=== PATIENT | female | born 1930 | race Caucasian/White ===

== ENCOUNTER → 2016-09-20 | Emergency (ER) | payer OTHER ==
[~2016-09-20] MED LIST: DIPHTH,PERTUSS(ACELL),TET VAC 0.5 ML VIAL IM ONE
--- NOTE | 2016-09-20 22:48 | PDOC ---
History of Present Illness <eLslie Higuera - Last Filed: 09/21/16 00:03> - General History Source: EMS, Old Records Exam Limitations: Dementia - History of Present Illness Initial Comments: 09/20/16 23:08 The patient is an 86 year old female, with a significant past medical history of hypertension, hyperlipidemia and dementia, who presents to the emergency department via EMS with a laceration to the left forehead s/p a presumed fall prior to presentation. Unknown LOC. Last Tetanus date unknown. HPI is limited secondary to the patients baseline dementia. Allergies: NKDA. Gluten, Wheat, Barley, [place] <Terra Petty - Last Filed: 09/21/16 00:38> - General Chief Complaint: Injury Stated Complaint: FALL/HEAD INJURY Time Seen by Provider: 09/20/16 22:46 Past History - Past Medical History Dementia: Yes GI Disorders: Yes (CELIAC) HTN: Yes Hypercholesterolemia: Yes Psychiatric Problems: Yes (depression) Suicide Attempt (Hx): No - Surgical History Abdominal Surgery: Yes - Immunization History Immunization Up to Date: Yes - Psycho/Social/Smoking Cessation Hx Anxiety: Yes Suicidal Ideation: No Smoking Status: No Smoking History: Never smoked Have you smoked in the past 12 months: No Number of Cigarettes Smoked Daily: 0 Hx Alcohol Use: No Drug/Substance Use Hx: No Substance Use Type: None Hx Substance Use Treatment: No <Leslie Higuera - Last Filed: 09/21/16 00:03> <Terra Petty - Last Filed: 09/21/16 00:38> - Past Medical History Allergies/Adverse Reactions: Allergies Allergy/AdvReac Type Severity Reaction Status Date / Time gluten Allergy Verified 09/20/16 22:59 wheat Allergy Verified 09/20/16 22:59 No Known Drug Allergies AdvReac Verified 09/20/16 22:59 BARLEY Allergy Uncoded 09/20/16 22:59 RYE Allergy Uncoded 09/20/16 22:59 Home Medications: Ambulatory Orders Acetaminophen [Tylenol .Regular Strength -] 650 mg PO DAILY 12/23/14 Calcium Carbonate/Vitamin D3 [Os-Brennan 500+D Tablet] 1 each PO BID 12/23/14 Citalopram Hydrobromide [Citalopram HBr] 20 mg PO DAILY 12/23/14 Cyanocobalamin Vit B-12 Inj. [Vitamin B12 Injection -] 1,000 mcg IJ MONTHLY Dextran 70/Hypromellose [Tears Naturale-II Eye Drops] 15 ml OP QID 12/23/14 Meclizine HCl [Antivert -] 12.5 mg PO BID 12/23/14 Polyethylene Glycol 3350 [Purelax] 17 gm PO DAILY 12/23/14 Quetiapine Fumarate [Seroquel -] 25 mg PO DAILY 12/23/14 Quetiapine Fumarate [Seroquel -] 75 mg PO HS 12/23/14 Simvastatin [Zocor -] 20 mg PO HS 12/23/14 Review of Systems - Review of Systems Able to Perform ROS?: No Comments:: 09/20/16 22:59 Unable to perform ROS due to the patients baseline dementia. <Terra Petty - Last Filed: 09/21/16 00:38> *Physical Exam - Physical Exam Comments: 09/20/16 23:28 GENERAL: Awake, alert, in no acute distress. HEAD: See procedure note for details. EYES: PERRLA, EOMI, sclera anicteric, conjunctiva clear. ENT: Auricles normal inspection, hearing grossly normal, nares patent, oropharynx clear without exudates. Moist mucosa. NECK: Normal ROM, supple, no lymphadenopathy, JVD, or masses. LUNGS: Breath sounds equal, clear to auscultation bilaterally. No wheezes, and no crackles. HEART: Regular rate and rhythm, normal S1 and S2, no murmurs, rubs or gallops. ABDOMEN: Soft, nontender, normoactive bowel sounds. No guarding, no rebound. No masses. EXTREMITIES: Normal range of motion, no edema. No clubbing or cyanosis. No cords , erythema, or tenderness. NEUROLOGICAL: Cranial nerves II through XII intact. Normal speech, gait deferred. SKIN: Abrasion to the right hand. Warm, dry, normal turgor, no rashes noted. <Terra Petty - Last Filed: 09/21/16 00:38> Procedures - Laceration/Wound Repair Left Frontal Wound Length: 2.6 to 5.0 cm Wound Explored: clean, no foreign body present Wound's Depth, Shape: stellate, contused tissue Anesthesia: 1% Lidocaine Amount of Anesthetic (ccs): 2 Wound Repaired With: Sutures Suture Size/Type: 5:0, other (gut) Number of Sutures: 6 Layer Closure: No Sterile Dressing Applied: Yes Progress: 09/20/16 23:25 +Hemostasis. Patient tolerated well. Wound with 3 portions- one is 2cm, one is 1cm, and one is 0.5 cm. Six sutures were placed with good hemostasis and wound approximation. <Leslie Higuera - Last Filed: 09/21/16 00:03> Medical Decision Making - Medical Decision Making 09/21/16 00:38 EXAM: CT/HEAD CT WITHOUT CONTRAST Reviewed By: Dr. Germain Salcedo IMPRESSION: No CT evidence of acute intracranial pathology. <Terra Petty - Last Filed: 09/21/16 00:38> *DC/Admit/Observation/Transfer - Discharge Dispostion Admit: No <Leslie Higuera - Last Filed: 09/21/16 00:03> - Attestations Scribe Attestion: 09/20/16 22:54 Documentation prepared by Terra Petty, acting as medical billing representative for Leslie Hiugera MD. <Terra Petty - Last Filed: 09/21/16 00:38> Diagnosis at time of Disposition: Fall at [facility] Qualifiers: Encounter type: initial encounter Qualified Code(s): W19.XXXA - Unspecified fall, initial encounter Head injury Qualifiers: Encounter type: initial encounter Qualified Code(s): S09.90XA - Unspecified injury of head, initial encounter Laceration of forehead Qualifiers: Encounter type: initial encounter Qualified Code(s): S01.81XA - Laceration without foreign body of other part of head, initial encounter - Discharge Dispostion Disposition: HOME Condition at time of disposition: Stable - Patient Instructions Printed Discharge Instructions: DI for Laceration Repair -- Simple, DI for Closed Head Injury, How to Care for Absorbable Sutures
[2016-09-20 22:59] VITALS: TEMP 98.4; BMI 18.6
[2016-09-21 00:41] VITALS: BP 100/45; PULSE 60
== END | disposition home or self-care (01) ==
LOC: JER 22:35
PROC: 0HQ0XZZ Repair Scalp Skin, External Approach (ICD-10-PCS; principal; 2016-09-20)
PROC: 0HQ1XZZ Repair Face Skin, External Approach (ICD-10-PCS; 2016-09-20)
PROC: 3E0234Z Introduction of Serum, Toxoid and Vaccine into Muscle, Percutaneous Approach (ICD-10-PCS; 2016-09-20)
DX: S01.81XA Laceration without foreign body of other part of head, initial encounter (principal); W18.30XA Fall on same level, unspecified, initial encounter; Y93.9 Activity, unspecified; Y92.9 Unspecified place or not applicable; F03.90 Unspecified dementia, unspecified severity, without behavioral disturbance, psychotic disturbance, mood disturbance, and anxiety; I10 Essential (primary) hypertension; E78.00 Pure hypercholesterolemia, unspecified; F32.9 Major depressive disorder, single episode, unspecified; K90.0 Celiac disease
CPT/HCPCS: 12013-25; 70450-TC; 90471; 90715; 99281-25

== ENCOUNTER 2017-05-26 14:37 | Emergency (ER) | payer OTHER ==
[2017-05-26 15:03] VITALS: TEMP 97.6; BMI 21.2
--- NOTE | 2017-05-26 15:07 | PDOC ---
History of Present Illness - General Chief Complaint: Injury Stated Complaint: FALL Time Seen by Provider: 05/26/17 15:07 - History of Present Illness Initial Comments: 05/26/17 15:20 Ms. Hernández is an 87 yo female w/ pmh of HPT, HLD, and dementia who presents via EMS w/ laceration to left forehead s/p presumed fall. Unknown if there was LOC or any neurological sequelae. Similar to prior presentation for fall in September, HPI limited due to patient's baseline dementia. Past History - Past Medical History Allergies/Adverse Reactions: Allergies Allergy/AdvReac Type Severity Reaction Status Date / Time gluten Allergy Verified 05/26/17 15:03 wheat Allergy Verified 05/26/17 15:03 No Known Drug Allergies AdvReac Verified 05/26/17 15:03 BARLEY Allergy Uncoded 05/26/17 15:03 RYE Allergy Uncoded 05/26/17 15:03 Home Medications: Ambulatory Orders Acetaminophen [Tylenol .Regular Strength -] 650 mg PO DAILY 12/23/14 Calcium Carbonate/Vitamin D3 [Os-Brennan 500+D Tablet] 1 each PO BID 12/23/14 Citalopram Hydrobromide [Citalopram HBr] 20 mg PO DAILY 12/23/14 Cyanocobalamin Vit B-12 Inj. [Vitamin B12 Injection -] 1,000 mcg IJ MONTHLY Dextran 70/Hypromellose [Tears Naturale-II Eye Drops] 15 ml OP QID 12/23/14 Meclizine HCl [Antivert -] 12.5 mg PO BID 12/23/14 Polyethylene Glycol 3350 [Purelax] 17 gm PO DAILY 12/23/14 Quetiapine Fumarate [Seroquel -] 25 mg PO DAILY 12/23/14 Quetiapine Fumarate [Seroquel -] 75 mg PO HS 12/23/14 Simvastatin [Zocor -] 20 mg PO HS 12/23/14 COPD: No Dementia: Yes GI Disorders: Yes (CELIAC) HTN: Yes Hypercholesterolemia: Yes Psychiatric Problems: Yes (depression) - Surgical History Abdominal Surgery: Yes - Immunization History Immunization Up to Date: Yes - Suicide/Smoking/Psychosocial Hx Smoking Status: No Smoking History: Never smoked Have you smoked in the past 12 months: No Number of Cigarettes Smoked Daily: 0 Information on smoking cessation initiated: No Hx Alcohol Use: No Drug/Substance Use Hx: No Substance Use Type: None Hx Substance Use Treatment: No Review of Systems - Review of Systems Comments:: 05/26/17 15:24 Unable to obtain. *Physical Exam - Vital Signs Last Vital Signs Temp Pulse Resp BP Pulse Ox 97.6 F 84 18 116/76 100 05/26/17 14:37 05/26/17 14:37 05/26/17 14:37 05/26/17 14:37 05/26/17 14:37 - Physical Exam Comments: 05/26/17 15:24 GENERAL: Patient awake and verbal but answers inappropriately consistent with baseline dementia. In no acute distress HEAD: +Small 1cm laceration to left superior forehead just below hair line EYES: PERRLA, EOMI, sclera anicteric, conjunctiva clear ENT: Auricles normal inspection, hearing grossly normal, nares patent, oropharynx clear without exudates. Moist mucosa NECK: Normal ROM, supple, no lymphadenopathy, JVD, or masses LUNGS: No distress, speaks full sentences, clear to auscultation bilaterally HEART: Regular rate and rhythm, normal S1 and S2, no murmurs, rubs or gallops, peripheral pulses normal and equal bilaterally. ABDOMEN: Soft, nontender, normoactive bowel sounds. No guarding, no rebound. No masses EXTREMITIES: +Small ecchymosis noted to right anterior forearm measuring approximately 12 cm in diameter. Normal range of motion, no edema. No clubbing or cyanosis. NEUROLOGICAL: +Unable to assess. SKIN: Warm, Dry, normal turgor, no rashes or lesions noted. Medical Decision Making - Medical Decision Making 05/26/17 16:46 Ms. Hernández' head CT was negative for acute pathology. Laceration on forehead extremely superficial. Cleaned with betadine and closure not necessary/possible. Patient ok for discharge to home. *DC/Admit/Observation/Transfer Diagnosis at time of Disposition: Fall Qualifiers: Encounter type: initial encounter Qualified Code(s): W19.XXXA - Unspecified fall, initial encounter - Referrals Referrals: Laurent Alvarez MD [Primary Care Provider] - - Patient Instructions Printed Discharge Instructions: How to Prevent Falls Additional Instructions: Please return if any fever, increase in pain, or change in mental status. - Post Discharge Activity
--- NOTE | 2017-05-26 15:41 | PDOC ---
Attending Attestation - Resident Resident Name: Qasim Troy - ED Attending Attestation I have performed the following: I have examined & evaluated the patient, The case was reviewed & discussed with the resident, I agree w/resident's findings & plan, Exceptions are as noted - HPI HPI: 05/26/17 15:41 Fall, Forehead Lac - Physicial Exam PE: 05/26/17 15:41 VSS, NAD - Medical Decision Making 05/26/17 15:[address] Troy's Assessment and Plan
[2017-05-26 18:26] VITALS: BP 106/64; PULSE 68
--- NOTE | 2017-06-01 12:58 | EKG ---
Test Reason : Blood Pressure : / mmHG Vent. Rate : 070 BPM Atrial Rate : 070 BPM P-R Int : 182 ms QRS Dur : 102 ms QT Int : 442 ms P-R-T Axes : 075 -18 116 degrees QTc Int : 477 ms NORMAL SINUS RHYTHM LEFT VENTRICULAR HYPERTROPHY WITH REPOLARIZATION ABNORMALITY ABNORMAL ECG WHEN COMPARED WITH ECG OF 23-DEC-2014 16:59, ST NOW DEPRESSED IN LATERAL LEADS T WAVE INVERSION NOW EVIDENT IN LATERAL LEADS Confirmed by MARIA ANTONIA VIZCAINO, COLLIN ([id number]) on 06/01/2017 12:58:16 PM Referred By: Confirmed By:COLLIN EM MD
== END 2017-05-26 17:49 ==
LOC: JER 14:37
DX: S01.81XA Laceration without foreign body of other part of head, initial encounter (principal); W18.30XA Fall on same level, unspecified, initial encounter; Y93.9 Activity, unspecified; Y92.89 Other specified places as the place of occurrence of the external cause; E78.5 Hyperlipidemia, unspecified; I10 Essential (primary) hypertension; F32.9 Major depressive disorder, single episode, unspecified; K90.0 Celiac disease
CPT/HCPCS: 70450-TC; 93005; 93010; 99282-25

== ENCOUNTER 2017-08-21 14:36 | Emergency (ER) | payer OTHER ==
--- NOTE | 2017-08-21 14:40 | PDOC ---
History of Present Illness - General Stated Complaint: FALL Time Seen by Provider: 08/21/17 14:40 - History of Present Illness Initial Comments: 08/21/17 15:06 Ms. Hernández is an 87 yo female w/ pmh of HTN, HLD, and dementia who presents s/p fall earlier today at [facility]. custodial confirmed she leaned forward out of her wheel chair, hitting her head on the ground. This has happened previously to her as she contracts forward and they are not able to restrain her at her current facility. Past History - Past Medical History Allergies/Adverse Reactions: Allergies Allergy/AdvReac Type Severity Reaction Status Date / Time gluten Allergy Verified 08/21/17 14:53 wheat Allergy Verified 08/21/17 14:53 No Known Drug Allergies AdvReac Verified 08/21/17 14:53 BARLEY Allergy Uncoded 08/21/17 14:53 RYE Allergy Uncoded 08/21/17 14:53 Home Medications: Ambulatory Orders Acetaminophen 650 mg PO PRN PRN 08/21/17 Calcium 500Mg/Vit-D 200 Units [Os-Brennan 500+D -] 1 combo PO BID 08/21/17 Citalopram Hydrobromide [Citalopram HBr] 20 mg PO DAILY 08/21/17 Cyanocobalamin (Vitamin B-12) [Cyanocobalamin Injection] 1,000 mcg SQ MONTHLY Meclizine HCl 12.5 mg PO BID 08/21/17 Quetiapine Fumarate [Seroquel] 12.5 tab PO DAILY 08/21/17 Quetiapine Fumarate [Seroquel] 50 tab PO HS 08/21/17 Simvastatin 20 mg PO DAILY 08/21/17 COPD: No Dementia: Yes GI Disorders: Yes (CELIAC) HTN: Yes Hypercholesterolemia: Yes Psychiatric Problems: Yes (depression) - Surgical History Abdominal Surgery: Yes - Immunization History Immunization Up to Date: Yes - Suicide/Smoking/Psychosocial Hx Smoking Status: No Smoking History: Never smoked Have you smoked in the past 12 months: No Number of Cigarettes Smoked Daily: 0 Hx Alcohol Use: No Drug/Substance Use Hx: No Substance Use Type: None Hx Substance Use Treatment: No Review of Systems - Review of Systems Comments:: 08/21/17 15:14 Unable to obtain. *Physical Exam - Physical Exam Comments: 08/21/17 15:15 GENERAL: Awake and alert. At baseline per care home. In no acute distress HEAD: +Hematoma noted to forehead approximately 7cm in diameter. EYES: PERRLA, EOMI, sclera anicteric, conjunctiva clear ENT: Auricles normal inspection, hearing grossly normal, nares patent, oropharynx clear without exudates. Moist mucosa NECK: Normal ROM, supple, no lymphadenopathy, JVD, or masses LUNGS: No distress, speaks full sentences, clear to auscultation bilaterally HEART: Regular rate and rhythm, normal S1 and S2, no murmurs, rubs or gallops, peripheral pulses normal and equal bilaterally. ABDOMEN: Soft, nontender, normoactive bowel sounds. No guarding, no rebound. No masses EXTREMITIES: Normal inspection, Normal range of motion, no edema. No clubbing or cyanosis. NEUROLOGICAL: +Unable to assess. SKIN: Warm, Dry, normal turgor, no rashes or lesions noted. ED Treatment Course - LABORATORY CBC & Chemistry Diagram: 08/21/17 16:23 08/21/17 16:23 Medical Decision Making - Medical Decision Making 08/21/17 17:08 Ms. Hernández is an 87 yo female w/ pmh as described s/p fall from wheelchair earlier today. Patient noted to be hypotensive to 90/43 on arrival. CBC/CMP/UA/ EKG/CXR/Head CT sent for evaluation. Labs grossly wnl as below. Patient BP improved to 108/71 after 1L NS. EKG unchanged in character from previous EKG. Currently pending Head CT read and CXR read. Patient signed out to Dr. Garcia for further evaluation. Laboratory Results - last 24 hr 08/21/17 08/21/17 08/21/17 16:23 16:23 16:30 WBC 5.5 RBC 3.35 L Hgb 10.5 L Hct 31.2 L MCV 93.3 MCH 31.5 MCHC 33.8 RDW 13.5 Plt Count 118 L MPV 9.9 Neutrophils % 76.5 Lymphocytes % 13.1 Monocytes % 8.2 Eosinophils % 1.3 Basophils % 0.9 Sodium 141 Potassium 4.4 Chloride 107 Carbon Dioxide 29 Anion Gap 5 L BUN 27 H Creatinine 0.7 Creat Clearance w eGFR > 60 Random Glucose 91 Calcium 8.2 L Total Bilirubin 0.5 D AST 20 ALT 12 Alkaline Phosphatase 44 L Total Protein 6.3 L Albumin 3.5 Urine Color Yellow Urine Appearance Slcloudy Urine pH 6.0 Ur Specific [place] 1.020 Urine Protein Negative Urine Glucose (UA) Negative Urine Ketones Trace H Urine Blood 1+ H Urine Nitrite Negative Urine Bilirubin Negative Urine Urobilinogen 2.0 H Ur Leukocyte Esterase Negative Urine WBC (Auto) 17 Urine RBC (Auto) 2 Urine Bacteria Rare Hyaline Casts 2 Urine Mucus Rare *DC/Admit/Observation/Transfer Diagnosis at time of Disposition: Closed head injury Qualifiers: Encounter type: initial encounter Qualified Code(s): S09.90XA - Unspecified injury of head, initial encounter - Discharge Dispostion Condition at time of disposition: Stable - Referrals Referrals: Laurent Alvarez MD [Primary Care Provider] - - Patient Instructions Printed Discharge Instructions: DI for Closed Head Injury Additional Instructions: Please return to the emergency department with any new or worsening symptoms or concerns. Please follow up with your primary care physician within 72 hours. - Post Discharge Activity
[2017-08-21 14:53] VITALS: PULSE 73; BMI 20.3
[2017-08-21] MEDS ORDERED: SODIUM CHLORIDE 1,000 ML IV STA (15:26)
--- NOTE | 2017-08-21 16:13 | PDOC ---
Attending Attestation - HPI HPI: 08/21/17 16:33 Patient is a 87 F with PMHx of HTN, HLD, Dementia, who presents today s/p unwitnessed fall at [facility]. It was reported by EMS that patient fell out of her wheelchair at [facility]. She was seen here at least 2x last year for fall-related injury. She ambulates with a wheelchair at baseline, and they are supposedly unable to fixate a seat belt on her wheelchair. History limited due to patients dementia - Physicial Exam PE: 08/21/17 16:33 Vitals: Triage Vital signs reviewed General Appearance: no acute distress, well nourished well developed, Head: Abrasion to the forehead. normocephalic Eyes: Pupils equal reactive round, extraocular movement intact Nose: Nares patent bilaterally;no nasal congestion Neck: Supple;No Nuchal rigidity Chest Wall: Nontender Cardiac: Regular rate and rhythm, no murmurs, no rubs, no gallops, Lungs: Clear to auscultation bilateral, good air movement bilaterally, Abdomen: Soft, nondistended, normal bowel sounds, nontender to palpation Extremities:Moving all extremities. Skin: Warm and dry, no rashes or lesions, no petechiae <Tori Robles - Last Filed: 08/21/17 16:33> - Resident Resident Name: Qasim Troy - ED Attending Attestation I have performed the following: I have examined & evaluated the patient, The case was reviewed & discussed with the resident, I agree w/resident's findings & plan, Exceptions are as noted - Medical Decision Making 87 hyperlipidemia hyperptension dementia with unwitnessed fall abrasion to forehead noted on examination History limited basin dementia. We'll check labs head CT and cervical spine CT observe and reassess Dr. Elizabeth to follow up labs imaging and reevaluate patient. <Osmany Jacobsen - Last Filed: 08/21/17 16:48> Heart Score/ECG Review - ECG Impressions Comment:: 08/21/17 16:13 EKG performed at 1406. Demonstrates normal sinus rhythm at 70 beats per minutes. Septal infarct age indeterminate ST depressions and T-wave inversions laterally. These are unchanged from prior Interpreted by me 08/21/17 16:16 <Osmany Jacobsen - Last Filed: 08/21/17 16:48>
[2017-08-21 16:31] LABS: BASO % 0.9 % (0-2.0); EOS % 1.3 % (0-4.5); HEMATOCRIT 31.2 % (32.4-45.2); HEMOGLOBIN 10.5 GM/dL (10.7-15.3); LYMPH % 13.1 % (8-40); MCH 31.5 pg (25.7-33.7); MCHC 33.8 g/dl (32.0-36.0); MEAN CELL VOLUME 93.3 fl (80-96); MEAN PLT VOLUME 9.9 fl (7.5-11.1); MONO % 8.2 % (3.8-10.2); NEUT % 76.5 % (42.8-82.8); PLATELET COUNT 118 K/MM3 (134-434); RBC 3.35 M/mm3 (3.60-5.2); RDW 13.5 % (11.6-15.6); WHITE BLOOD COUNT 5.5 K/mm3 (4.0-10.0)
[2017-08-21 16:45] LABS: URINE APPEARANCE SLCLOUDY; URINE BILIRUBIN NEGATIVE (NEGATIVE); URINE BLOOD 1+ (NEGATIVE); URINE COLOR YELLOW; URINE GLUCOSE (UA) NEGATIVE (NEGATIVE); URINE KETONE TRACE (NEGATIVE); URINE LEUK ESTERASE NEGATIVE (NEGATIVE); URINE NITRITE NEGATIVE (NEGATIVE); URINE PROTEIN NEGATIVE (NEGATIVE)
[2017-08-21 16:57] LABS: URINE BACTERIA RARE /hpf (NONE SEEN); URINE HYALINE CAST 2 /lpf; URINE MUCUS RARE
[2017-08-21 16:59] LABS: ALBUMIN 3.5 g/dl (3.4-5.0); ALK PHOS 44 U/L (45-117); ANION GAP 5 (8-16); BILIRUBIN,TOTAL 0.5 mg/dL (0.2-1.0); BLOOD UREA NITROGEN 27 mg/dL (7-18); CALCIUM 8.2 mg/dL (8.5-10.1); CHLORIDE 107 mmol/L (98-107); CO2 29 mmol/L (21-32); CREATININE 0.7 mg/dL (0.55-1.02); GLUCOSE,RANDOM 91 mg/dL (74-106); SGPT/ALT 12 U/L (12-78); SODIUM 141 mmol/L (136-145); TOT PROT 6.3 g/dl (6.4-8.2)
[2017-08-21 17:03] LABS: POTASSIUM 4.4 mmol/L (3.5-5.1)
[2017-08-21 17:04] LABS: SGOT/AST 20 U/L (15-37)
[2017-08-21 18:24] VITALS: BP 108/71; TEMP 99.6
--- NOTE | 2017-08-21 19:17 | PDOC ---
*Physical Exam - Vital Signs Last Vital Signs Temp Pulse Resp BP Pulse Ox 99.6 F 73 18 108/71 98 08/21/17 18:23 08/21/17 18:23 08/21/17 18:23 08/21/17 18:23 08/21/17 18:23 - Physical Exam Comments: 08/21/17 19:16 GENERAL: Awake, alert, and fully oriented, in no acute distress HEAD:7 cm forehead hematoma. EYES: PERRLA, EOMI, sclera anicteric, conjunctiva clear ENT: Auricles normal inspection, hearing grossly normal, nares patent, oropharynx clear without exudates. Moist mucosa NECK: Normal ROM, supple, no lymphadenopathy, JVD, or masses LUNGS: No distress, speaks full sentences, clear to auscultation bilaterally HEART: Regular rate and rhythm, normal S1 and S2, no murmurs, rubs or gallops, peripheral pulses normal and equal bilaterally. EXTREMITIES : Normal inspection, Normal range of motion, no edema. No clubbing or cyanosis. NEUROLOGICAL: Not able to assess. SKIN: Warm, Dry, normal turgor, no rashes or lesions noted ED Treatment Course - LABORATORY CBC & Chemistry Diagram: 08/21/17 16:23 08/21/17 16:23 - ADDITIONAL ORDERS Additional order review: Laboratory Results 08/21/17 08/21/17 08/21/17 16:30 16:23 14:50 Sodium 141 Potassium 4.4 Chloride 107 Carbon Dioxide 29 Anion Gap 5 L BUN 27 H Creatinine 0.7 Creat Clearance w eGFR > 60 Random Glucose 91 Calcium 8.2 L Total Bilirubin 0.5 D AST 20 ALT 12 Alkaline Phosphatase 44 L Troponin I 0.02 Total Protein 6.3 L Albumin 3.5 Urine Color Yellow Urine Appearance Slcloudy Urine pH 6.0 Ur Specific [place] 1.020 Urine Protein Negative Urine Glucose (UA) Negative Urine Ketones Trace H Urine Blood 1+ H Urine Nitrite Negative Urine Bilirubin Negative Urine Urobilinogen 2.0 H Ur Leukocyte Esterase Negative Urine WBC (Auto) 17 Urine RBC (Auto) 2 Urine Bacteria Rare Hyaline Casts 2 Urine Mucus Rare 08/21/17 16:23 RBC 3.35 L MCV 93.3 MCHC 33.8 RDW 13.5 MPV 9.9 Neutrophils % 76.5 Lymphocytes % 13.1 Monocytes % 8.2 Eosinophils % 1.3 Basophils % 0.9 - Medications Given in the ED: ED Medications Discontinued Medications Generic Name Dose Route Start Last Admin Trade Name Freq PRN Reason Stop Dose Admin Sodium Chloride 1,000 mls @ 1,000 mls/hr 08/21/17 15:26 08/21/17 16:15 Normal Saline - IV 08/21/17 16:25 1,000 mls/hr ASDIR STA Administration Medical Decision Making - Medical Decision Making 08/21/17 19:[address] Troy 87 y F w/ h/o HTN, HLD, dementia s/p mechanical fall from wheelchair with closed head injury. Arrived EMS hypotensive to 90/43, and with forehead hematoma. CBC/CMP/UA/EKG unremarkable. BP imrpoved 108/71 after 1L NS. EKG unchanged in character from previous EKG. CT HEAD pending CXR: Pending ED Course: CT HEAD: No acute changes. Absent fracture or hemorrhage . 08/21/17 19:21 Pt. stable at bedside with return precautions. Advised to follow up with PMD. *DC/Admit/Observation/Transfer Diagnosis at time of Disposition: Closed head injury Qualifiers: Encounter type: initial encounter Qualified Code(s): S09.90XA - Unspecified injury of head, initial encounter - Discharge Dispostion Condition at time of disposition: Stable Admit: No - Referrals Referrals: Laurent Alvarez MD [Primary Care Provider] - - Patient Instructions Printed Discharge Instructions: DI for Closed Head Injury Additional Instructions: Please return to the emergency department with any new or worsening symptoms or concerns. Please follow up with your primary care physician within 72 hours. - Post Discharge Activity - Attestations Physician Attestion: 08/21/17 19:21 I attest to the information provided in this note.
--- NOTE | 2017-08-22 16:06 | EKG ---
Test Reason : Blood Pressure : / mmHG Vent. Rate : 070 BPM Atrial Rate : 070 BPM P-R Int : 178 ms QRS Dur : 102 ms QT Int : 428 ms P-R-T Axes : 066 -20 115 degrees QTc Int : 462 ms POOR DATA QUALITY, INTERPRETATION MAY BE ADVERSELY AFFECTED NORMAL SINUS RHYTHM LEFT VENTRICULAR HYPERTROPHY WITH REPOLARIZATION ABNORMALITY CANNOT RULE OUT SEPTAL INFARCT , AGE UNDETERMINED ABNORMAL ECG WHEN COMPARED WITH ECG OF 26-MAY-2017 15:02, NO SIGNIFICANT CHANGE WAS FOUND Confirmed by REINIER MANRIQUEZ MD ([id number]) on 08/22/2017 4:06:14 PM Referred By: Confirmed By:REINIER MANRIQUEZ MD
== END 2017-08-21 21:28 ==
LOC: JER 14:36
PROC: 3E0337Z Introduction of Electrolytic and Water Balance Substance into Peripheral Vein, Percutaneous Approach (ICD-10-PCS; principal; 2017-08-21)
DX: S00.83XA Contusion of other part of head, initial encounter (principal); W05.0XXA Fall from non-moving wheelchair, initial encounter; Y93.89 Activity, other specified; Y92.128 Other place in nursing home as the place of occurrence of the external cause; I10 Essential (primary) hypertension; F32.9 Major depressive disorder, single episode, unspecified; K90.0 Celiac disease
CPT/HCPCS: 36415; 70450-TC; 71045-TC-FY; 80053; 81003; 81015; 84484; 85025; 87086; 93005; 93010; 96360; 99284-25